=== PATIENT | male | born 1985 | race Caucasian/White ===

== ENCOUNTER 2018-05-02 20:30 | Observation (INO) | payer OTHER ==
[2018-05-02] MEDS ORDERED: ONDANSETRON 4 MG/2 ML VIAL IVP ONE (20:57)
[2018-05-02] MEDS ORDERED: HYDROmorphONE/DILAUDID 2 MG/ML INJ IVP ONE (20:57)
[2018-05-02] MEDS ORDERED: NS 1,000 ML IV ONE (20:57)
[2018-05-02] MEDS ORDERED: IOPAMIDOL (ISOVUE-300) 100 ML BTL ONE (20:59)
--- NOTE | 2018-05-02 21:00 | EDPHY ---
H & P Stated Complaint: RLQ abd pain, nausea, diarrhea Time Seen by Provider: 05/02/18 20:46 HPI/ROS: CHIEF COMPLAINT: Right lower quadrant pain HISTORY OF PRESENT ILLNESS: Patient is a 32-year-old man who comes to the emergency department complaining of right lower quadrant pain for the last 3 days as well as an episode of diarrhea on Tuesday and some nausea ever since. He has not vomited. He has not had a fever. No history of abdominal surgeries. No flank pain. No testicular pain. His diarrhea was nonbloody. He has lost his appetite. He was seen at the urgent care earlier today obtain lab [place] [id number]. They called him back and told him to come to the ER for CT scan. REVIEW OF SYSTEMS: Constitutional: denies: chills, fever, recent illness, recent injury EENTM: denies: blurred vision, double vision, nose congestion Respiratory: denies: cough, shortness of breath Cardiac: denies: chest pain, irregular heart rate, lightheadedness, palpitations Gastrointestinal/Abdominal: See HPI Genitourinary: denies: dysuria, frequency, hematuria, pain Musculoskeletal: denies: joint pain, muscle pain Skin: denies: lesions, rash, jaundice, bruising Neurological: denies: headache, numbness, paresthesia, tingling, dizziness, weakness Hematologic/Lymphatic: denies: blood clots, easy bleeding, easy bruising Immunologic/allergic: denies: HIV/AIDS, transplant EXAM: GENERAL: Well-appearing, well-nourished and in no acute distress. HEAD: Atraumatic, normocephalic. EYES: Pupils equal round and reactive to light, extraocular movements intact, sclera anicteric, conjunctiva are normal. ENT: TMs normal, nares patent, oropharynx clear without exudates. Moist mucous membranes. NECK: Normal range of motion, supple without lymphadenopathy or JVD. LUNGS: Breath sounds clear to auscultation bilaterally and equal. No wheezes rales or rhonchi. HEART: Regular rate and rhythm without murmurs, rubs or gallops. ABDOMEN: Right lower quadrant tenderness, some right upper quadrant pain but no tenderness and negative De La Cruz's. BACK: No CVA tenderness, no spinal tenderness, step-offs or deformities EXTREMITIES: Normal range of motion, no pitting or edema. No clubbing or cyanosis. NEUROLOGICAL: Cranial nerves II through XII grossly intact. Normal speech, normal gait. 5/5 strength, normal movement in all extremities, normal sensation PSYCH: Normal mood, normal affect. SKIN: Warm, dry, normal turgor, no visible rashes or lesions. Source: Patient Exam Limitations: No limitations - Personal History Current Tetanus/Diphtheria Vaccine: Unsure Current Tetanus Diphtheria and Acellular Pertussis (TDAP): Unsure - Medical/Surgical History Hx Asthma: No Hx Chronic Respiratory Disease: No Hx Diabetes: No Hx Cardiac Disease: No Hx Renal Disease: No Hx Cirrhosis: No Hx Alcoholism: No Hx HIV/AIDS: No Hx Splenectomy or Spleen Trauma: No Other PMH: anxiety - Family History Significant Family History: No pertinent family hx - Social History Smoking Status: Never smoked Alcohol Use: Sober Drug Use: None Constitutional: Initial Vital Signs Temperature (C) 36.9 C 05/02/18 20:30 Heart Rate 91 05/02/18 20:30 Respiratory Rate 16 05/02/18 20:30 Blood Pressure 105/68 05/02/18 20:30 O2 Sat (%) 95 05/02/18 20:30 O2 Delivery Mode Room Air Allergies/Adverse Reactions: No Known Allergies Allergy (Verified 05/02/18 20:34) Home Medications: Medication Instructions Recorded Citalopram [CeleXA] 20 mg PO DAILY #0 05/02/18 Multivitamins [Multivitamin (*)] 1 each PO DAILY 05/03/18 Medical Decision Making - Diagnostics Imaging: Discussed imaging studies w/ call center manager Radiologist ED Course/Re-evaluation: 10:00 p.m. I discussed the case with Dr. Crocker who will come to consult. I have ordered antibiotics. Differential Diagnosis: Partial list of the Differential diagnosis considered include but were not limited to; gastritis, appendicitis and although unlikely based on the history and physical exam, I also considered hernia, volvulus, ischemia, diverticulitis , biliary disease. - Data Points Laboratory Results: Laboratory Results 05/02/18 21:00 05/02/18 21:00 Medications Given: Discontinued Medications Hydrocodone Bitart/Acetaminophen (Norman 5/325) 1 - 2 tab PO Q4HRS PRN PRN Reason: Pain, Moderate Able to Take PO Stop: 05/13/18 00:25 Last Admin: 05/03/18 07:29 Dose: 1 tab Bupivacaine HCl (Sensorcaine 0.5% Vial) Confirm Administered Dose 30 ml .ROUTE .STK-MED ONE Stop: 05/02/18 23:21 Last Admin: 05/03/18 00:18 Dose: 20 ml Fentanyl (Sublimaze) 25 - 100 mcg IVP Q5M PRN PRN Reason: PACU, IMMEDIATE Pain control Stop: 05/03/18 01:22 Last Admin: 05/03/18 00:57 Dose: 25 mcg Hydromorphone HCl (Dilaudid) 0.5 mg IVP EDNOW ONE Stop: 05/02/18 20:58 Last Admin: 05/02/18 21:07 Dose: 0.5 mg Sodium Chloride (Ns) 1,000 mls @ 0 mls/hr IV EDNOW ONE; Wide Open PRN Reason: Protocol Stop: 05/02/18 20:58 Last Admin: 05/02/18 21:02 Dose: 1,000 mls Ceftriaxone Sodium/Dextrose (Rocephin 1 Gm (Premix)) 50 mls @ 100 mls/hr IV DAILY ALEX PRN Reason: Protocol Stop: 06/01/18 21:59 Last Admin: 05/03/18 10:04 Dose: 50 mls Metronidazole/Sodium Chloride (Flagyl 500 Mg (Premix)) 100 mls @ 100 mls/hr IV Q8HRS ALEX PRN Reason: Protocol Stop: 06/01/18 21:59 Last Admin: 05/03/18 07:28 Dose: 100 mls Midazolam HCl (Versed) 2 mg IVP ONCALL ONE Stop: 05/03/18 00:22 Last Admin: 05/02/18 23:25 Dose: 2 mg Ondansetron HCl (Zofran) 4 mg IVP EDNOW ONE Stop: 05/02/18 20:58 Last Admin: 05/02/18 21:07 Dose: 4 mg Departure - Departure Disposition: [facility] Acute Clinical Impression: Acute appendicitis Qualifiers: Acute appendicitis type: with localized peritonitis Qualified Code(s): K35.3 - Acute appendicitis with localized peritonitis Condition: Fair
[2018-05-02] MEDS ORDERED: HYDROmorphONE/DILAUDID 1 MG/ML INJ ONE (21:06)
[2018-05-02 21:17] LABS: PLATELET COUNT 221 10^3/uL (150-400)
[2018-05-02 21:26] LABS: INR 1.12 (0.83-1.16); PROTIME(PATIENT) 14.6 SEC (12.0-15.0)
--- NOTE | 2018-05-02 22:51 | GDS ---
[f rep st] TRANSFER SUMMARY CHIEF COMPLAINT: Right lower quadrant pain. PRESENT ILLNESS: 48 hours of right lower quadrant pain. Difficulty walking. CT scan showing retroc ecal appendicitis. White blood count is 13,000. PAST MEDICAL HISTORY/ALLERGIES: None. CURRENT MEDICATIONS: Citalopram. PREVIOUS SURGERY/REVIEW OF SYSTEMS: Patient denies asthma, heart trouble, diabetes, epilepsy, and rh eumatic fever. FAMILY HISTORY: Noncontributory. PHYSICAL EXAM: GENERAL: Slender male in minimal distress. HEENT: No scleral icterus. Pharynx george ar. NECK: Supple without adenopathy. LUNGS: Clear. HEART: Normal S1, S2 without murmur. ABDOME N: Tender right lower quadrant, slightly higher than McBurney's point. EXTREMITIES/NEUROLOGIC: Unr emarkable. CT scan is reviewed, showing a retrocecal appendix slightly more cephalad than usual. ASSESSMENT: Acute appendicitis. RECOMMENDATIONS: I discussed with the patient the options of surgical treatment versus attempted med ical management. He would like an appendectomy. We will do this laparoscopically and, if there is a ny issue, open. /[id number]/MODL
[2018-05-02] MEDS ORDERED: MIDAZOLAM 2 MG/2 ML VIAL ONE (23:18)
--- NOTE | 2018-05-02 23:18 | PDANEPAE ---
ANE History of Present Illness 32 year old with appendicytis ANE Past Medical History - Pulmonary History Hx Sleep Apnea: No - Endocrine History Hx Diabetes: No ANE Review of Systems Review of systems is: negative Review of Systems: ANE Patient History - Allergies Allergies/Adverse Reactions: No Known Allergies Allergy (Verified 05/02/18 20:34) - Home Medications Home medications: home medication list seen and reviewed Home Medications: Citalopram 05/02/18 [Last Taken Unknown] - NPO status NPO Status: no food or drink >8 hours NPO Since - Liquids (Date): 05/02/18 NPO Since - Liquids (Time): 19:00 NPO Since - Solids (Date): 05/02/18 NPO Since - Solids (Time): 11:00 - Anes Hx Anes Hx: no prior problems - Smoking Hx Smoking Status: Never smoked - Alcohol Use Alcohol Use: Occasionally - Family Anes Hx Family Anes Hx: none ANE Labs/Vital Signs - Labs Result Diagrams: 05/02/18 21:00 05/02/18 21:00 - Vital Signs Blood Pressure: 102/62 Heart Rate: 61 Respiratory Rate: 14 O2 Sat (%): 95 Height: 190.5 cm Weight: 74.843 kg ANE Physical Exam - Airway Neck exam: FROM Mallampati Score: Class 1 Mouth exam: normal dental/mouth exam - Pulmonary Pulmonary: no respiratory distress, clear to auscultation - Cardiovascular Cardiovascular: regular rate and rhythym - ASA Status ASA Status: I ANE Anesthesia Plan Anesthesia Plan: general endotracheal anesthesia
[2018-05-02] MEDS ORDERED: BUPIVACAINE 0.5% 30 ML SDV ONE (23:20)
[2018-05-02] MEDS ORDERED: LIDOCAINE 2% 5 ML SDV ONE (23:36)
[2018-05-02] MEDS ORDERED: PROPOFOL 200 MG/20 ML VIAL ONE (23:36)
[2018-05-02] MEDS ORDERED: ROCURONIUM 50 MG/5 ML VIAL ONE (23:36)
[2018-05-02] MEDS ORDERED: fentaNYL 100 MCG/2 ML INJ ONE (23:36)
[2018-05-02] MEDS ORDERED: ONDANSETRON 4 MG/2 ML VIAL ONE (23:58)
[2018-05-03] MEDS ORDERED: SUGAMMADEX SODIUM 200 MG/2 ML VIAL IVP ONE (00:17)
[2018-05-03] MEDS ORDERED: MIDAZOLAM 2 MG/2 ML VIAL IVP ONE (00:21)
[2018-05-03] MEDS ORDERED: PROMETHAZINE HCL 25 MG/ML INJ IVP PRN (00:22)
[2018-05-03] MEDS ORDERED: NALOXONE HCL 0.4 MG/ML INJ IVP PRN (00:22)
[2018-05-03] MEDS ORDERED: ONDANSETRON 4 MG/2 ML VIAL IVP PRN ×2 (00:22→00:26)
--- NOTE | 2018-05-03 00:26 | POSTOPPROG ---
Post Op Note Date of Operation: 05/03/18 Surgeon: Arnold Ramirez Pre-op Diagnosis: acute appy Post-op Diagnosis: same Indication: same Procedure: lap appy Findings: same Inf/Abcess present in the surg proc area at time of surgery?: No
[2018-05-03] MEDS ORDERED: LR 1,000 ML IV SCH (00:30)
[2018-05-03] MEDS ORDERED: fentaNYL 100 MCG/2 ML INJ ONE (00:39)
[2018-05-03] MEDS: fentaNYL 100 MCG/2 ML INJ IVP PRN ×3 (00:42→00:57)
--- NOTE | 2018-05-03 00:52 | GDS ---
[f rep st] DISCHARGE SUMMARY PRESENT ILLNESS: Patient had acute appendicitis, underwent an appendectomy, and is discharged the [facility] following surgery. DISPOSITION: Home. FOLLOWUP: Dr. Eli within a week. /[id number]/MODL
--- NOTE | 2018-05-03 00:52 | GOP ---
[f rep st] OPERATIVE REPORT DATE OF OPERATION: SURGEON: Arnold Ramirez MD PREOPERATIVE DIAGNOSIS: Acute appendicitis. POSTOPERATIVE DIAGNOSIS: Acute appendicitis. PROCEDURE PERFORMED: Laparoscopic appendectomy. FINDINGS: INDICATIONS: A 32-year-old male with clinical picture of acute appendicitis. DESCRIPTION OF PROCEDURE: General anesthetic. The abdomen scrubbed with ChloraPrep, draped in usual sterile fashion. Infraumbilical incision made. A Veress needle used to achieve pneumoperitoneum. A 12 mm port was placed. Two 5 mm ports were placed elsewhere in the midline. The appendix was brou ght into view. It was retrocecal. It was dissected away from the retroperitoneum with the Harmonic Scalpel. When the appendix was suspended from the cecum, it was amputated flush on the cecum with an Endo-RAYRAY 30 blue cartridge. It was placed in an Endopouch and extracted. There was no bleeding. T he fascial defect at the umbilicus was closed with 0 Vicryl, skin with 4-0 Vicryl and Dermabond. Crystal spicer tolerated the procedure well. /[id number]/MODL
[2018-05-03] MEDS: HYDROCODONE/APAP 5/325 TAB PO PRN ×2 (01:36→07:29)
[2018-05-03 07:37] VITALS: BP 95/58
== END 2018-05-03 11:39 | disposition home or self-care (01) ==
LOC: F3E 05-03 01:10
PROVIDERS: ADMIT Surgery; ATTEND Surgery
PROC: 0DTJ4ZZ Resection of Appendix, Percutaneous Endoscopic Approach (ICD-10-PCS; principal; 2018-05-03)
DX: K35.80 Unspecified acute appendicitis (principal); E86.9 Volume depletion, unspecified
CPT/HCPCS: 44970; 74177; G0378; J0696; J1170; J2250; J2405; J2704; J3010; Q9967